=== PATIENT | male | born 1960 | race Caucasian/White ===

== ENCOUNTER 2020-12-04 07:21 | Outpatient (CLI) | payer OTHER ==
[2020-12-04] MEDS ORDERED: Magnevist 469MG/ML 20 ML VIAL ONE (14:23)
== END 2020-12-04 07:22 | disposition home or self-care (01) ==
LOC: BICMRI 07:21
DX: D17.1 Benign lipomatous neoplasm of skin and subcutaneous tissue of trunk (principal)
CPT/HCPCS: 74183; 82565; A9579